=== PATIENT | female | born 1990 | race Caucasian/White ===

== ENCOUNTER 2021-03-09 12:30 | Outpatient (RCR) | payer OTHER, SELFPAY ==
--- NOTE | 2021-02-09 09:20 | PTOPEVAL ---
INITIAL PHYSICAL THERAPY EVALUATION and PLAN OF CARE Thank you for referring Konstantin Eller to [facility] [place] Konstantin is scheduled to be seen for physical therapy? 2x/week for 4 weeks. Please review, sign, date and return this plan of care RISHI. I agree with and certify that the following plan of care is medically necessary. Referring Physician Date Admitting Provider: Attending Provider: Ulysses Rothman, Referring Provider: *PT Outpatient Evaluation Start: 02/09/21 08:07 Freq: Status: Active Protocol: Document 02/09/21 08:00 GENET (Rec: 02/09/21 09:19 GENET [id number]) Therapy Assessment Status Assessment Status Assessment Status Evaluation Outpatient Past Medical History Past Medical History Source of Past Medical History Patient Musculoskeletal History Hx Fractures Yes: L wrist-as child, L foot 2010 Reproductive History Hx Section Yes: 07/02/2009 Psychosocial History Hx Depression Yes Evaluation Information Problem Diagnosis chronic pelvic pain of female, pelvic and perineal pain Onset x years - worsening over time Subjective Information in lower back - at times it is Query Text:As Reported By Patient/ sharp, at times it is dull - Family at times it hurts to move, with intercourse feels like hips will pop out of place - this happens with increase in intensity. When moved L leg - heard pop in L hip - increased pain afterwards. Sleeping - discomfort interferes with ability to get comfortable and stay comfortable. Mornings - tired and hurting - usual worse in mornings - lessens once she gets moving. Diagnostic Tests Other Tests For This Problem Yes: pelvic ultrasound - normal Prior Level of Function Activity Level (Last 3 Months) Occupation stay at home , lots of animals Hand Dominance Right Medications Home Meds (Include: OTC, RX, Vitamins, depo-provera - every 3 months, Herbals, Dose, Route,and Frequency) nystatin - for L thumb, Query Text:Home Med Entries Will No ziprasidone, lomotogen Longer Recall From Past Visits. Home Meds Must Be Re-entered With Each Visit. Home Setting Home Type Mobile Home Environmental Barriers Stairs, 2-4 Living Situation
--- NOTE | 2021-03-09 13:18 | PTOPEVAL ---
PHYSICAL THERAPY DISCHARGE SUMMARY Thank you for referring Konstantin Eller to [facility].? Konstantin has been seen in PT x 9 visits. She has met all goals set and is to continue with her HEP on a regular basis. I agree with Konstantin's discharge from PT. Referring Physician Date Admitting Provider: Attending Provider: Ulysses Rothman, MD Referring Provider: Therapy Assessment Status Assessment Status Assessment Status Discharge Evaluation Information Problem Diagnosis chronic pelvic pain of female, pelvic and perineal pain Subjective Information Konstantin reports doing okay - Query Text:As Reported By Patient/ just having sore muscles. Not Family really having the discomfort that she came in with. If sits prolonged with increase in hip abduction - might get some discomfort. No discomfort with intercourse. Generally doing well with HEP - forgets every once in awhile . Pain Assessment Self Report Pain Assessment Pelvis Reported Pain Level 0 Lowest Pain Intensity 0 Greatest Pain Intensity 3 Cervical and Lumbar ROM Lumbar ROM Lumbar ROM 75% of Normal Normal Lumbar Segmental Motion Yes Lumbar Comments symmetrical SIJ mobility present with trunk AROM PT Clinical Summary Clinical Summary Protocol: PTEVCODE PT Clinical Summary Modified Oswestry LBP Questionnaire - 12% Pelvic Floor Impact Questionnaire - 11/08 Konstantin has met all goals set. Generally she doesn't have discomfort, original discomfort is gone most of the time. With prolonged sitting positioning - at times can result in discomfort. She performs HEP well - which was reviewed this date and updated HEP provided. She is ready from d/c from PT to HEP.
== END 2021-03-12 08:22 | disposition home or self-care (01) ==
LOC: ANHPT 12:30
PROVIDERS: PCP Family Medicine; Visit Provider Family Medicine
DX: R10.2 Pelvic and perineal pain (principal)
CPT/HCPCS: 97014; 97110; 97140; 97162; G0283

== ENCOUNTER 2021-09-20 12:47 | Emergency (ER) | payer OTHER, SELFPAY ==
--- NOTE | 2021-09-20 13:06 | ED.URI ---
HPI - URI/Sore Throat General Chief Complaint: Upper Respiratory Infection Stated Complaint: aches cough congestion Time Seen by Provider: 09/20/21 13:06 Source: patient and family History of Present Illness MD elicited complaint: fever, cough and nasal congestion Related Data Home Medications Medication Instructions Recorded Confirmed hydroxyzine HCl 10 mg PO BID PRN 09/20/21 09/20/21 ziprasidone HCl 20 mg PO DAILY 09/20/21 09/20/21 Allergies Allergy/AdvReac Type Severity Reaction Status Date / Time oxcarbazepine Allergy Hives Verified 09/20/21 13:15 [From Trileptal] vitamins with Allergy Nausea and Verified 09/20/21 13:15 calcium Vomiting [From 1 + Iron] Review of Systems Review of Systems: The patient is a well-developed, well-nourished in no acute distress. SKIN: Skin is warm and dry without erythema, swelling or exudate. There is good turgor. No tenting. HEAD: Atraumatic. Normocephalic. No temporal or scalp tenderness. EYES: Moist and bright. Sclera and conjunctivae normal. No discharge. PERRLA. Extraocular motions intact. Gross visual acuity intact. EARS: Pinna is normal shape and contour. Clear external auditory canals. TM pearly tucker with good cone of light, no erythema or suppuration. Bilateral cerumen noted no gross hearing deficit. NOSE: pink, moist mucosa with good air movement. Clear rhinorrhea without nasal flaring. Septum midline. Mouth: moist mucous membranes. THROAT; mild erythema noted to posterior oropharynx with moderate postnasal drainage. Without exudate or ulceration.. Uvula midline. Normal movement of soft palate. NECK: Supple and nontender with full range of motion without discomfort. No meningeal signs. LUNGS: Equal and bilateral breath sounds without wheezes, rales or rhonchi. CHEST: The chest wall is without retractions or use of accessory muscles. HEART: Has a regular rate and rhythm without murmur, gallops, click or rub. ABDOMEN: Soft, nontender with positive active bowel sounds. No rebound tenderness. EXTREMITIES: Without cyanosis, clubbing or edema. Equal 2+ distal pulses and 2 second capillary refill noted. NEUROLOGIC: alert, active, . The patient moves all extremities with normal muscle strength. Normal muscle tone is noted. Normal coordination is noted. NO focal neurological findings noted. PMFSH Comments At time of signature, agree with nursing past medical, surgical, social and family history. There is no relevant family history pertinent to the presenting complaint Exam Narrative: The patient is a well-developed, well-nourished in no acute distress. SKIN: Skin is warm and dry without erythema, swelling or exudate. There is good turgor. No tenting. HEAD: Atraumatic. Normocephalic. No temporal or scalp tenderness. EYES: Moist and bright. Sclera and conjunctivae normal. No discharge. PERRLA. Extraocular motions intact. Gross visual acuity intact. EARS: Pinna is normal shape and contour. Clear external auditory canals. TM pearly tucker with good cone of light, no erythema or suppuration. Bilateral cerumen noted no gross hearing deficit. NOSE: pink, moist mucosa with good air movement. Clear rhinorrhea without nasal flaring. Septum midline. Mouth: moist mucous membranes. THROAT; mild erythema noted to posterior oropharynx with moderate postnasal drainage. Without exudate or ulceration.. Uvula midline. Normal movement of soft palate. NECK: Supple and nontender with full range of motion without discomfort. No meningeal signs. LUNGS: Equal and bilateral breath sounds without wheezes, rales or rhonchi. CHEST: The chest wall is without retractions or use of accessory muscles. HEART: Has a regular rate and rhythm without murmur, gallops, click or rub. ABDOMEN: Soft, nontender with positive active bowel sounds. No rebound tenderness. EXTREMITIES: Without cyanosis, clubbing or edema. Equal 2+ distal pulses and 2 second capillary refill noted. NEUROLOGIC: alert, active,
== END 2021-09-20 13:37 | disposition home or self-care (01) ==
PROVIDERS: Emergency Provider Nurse Practitioner Family; PCP Family Medicine
DX: B34.9 Viral infection, unspecified (principal); J06.9 Acute upper respiratory infection, unspecified; Z20.822 Contact with and (suspected) exposure to COVID-19; F41.9 Anxiety disorder, unspecified; F32.A Depression, unspecified
CPT/HCPCS: 87804; 99213; G0463

== ENCOUNTER → 2021-09-22 07:12 | Outpatient (CLI) | payer OTHER, SELFPAY ==
[2021-09-23 20:55] LABS: SARS-CoV-2 RNA PCR Positive
== END ==
PROVIDERS: PCP Family Medicine; Visit Provider Nurse Practitioner Family
DX: U07.1 COVID-19 (principal)
CPT/HCPCS: C9803; U0003; U0005